=== PATIENT | male | born 1985 | race Caucasian/White ===

== ENCOUNTER 2017-01-22 12:18 | Emergency (ER) | payer OTHER | END 2017-01-22 16:57 | disposition home or self-care (01) | LOC: ER1 12:18 | DX: S50.02XA Contusion of left elbow, initial encounter (principal); W17.89XA Other fall from one level to another, initial encounter; Y92.69 Other specified industrial and construction area as the place of occurrence of the external cause; Y99.0 Civilian activity done for income or pay | CPT/HCPCS: 71020; 73080; 73502; 81001; 96372; 99283; J1885 ==